=== PATIENT | female | born 2000 | race Caucasian/White ===

== ENCOUNTER 2021-05-03 03:30 | Emergency (ER) | payer OTHER ==
[~2021-05-03] VITALS: Ht 160 cm; Wt 63.5 kg
[2021-05-03 04:37] VITALS: BP 109/59
[2021-05-03] MEDS ORDERED: CEPHALEXIN500 MG PO (05:34)
[2021-05-03] MEDS ORDERED: PERCOCET 5-3251 EACH PO (05:34)
== END 2021-05-03 05:44 | disposition home or self-care (01) ==
LOC: ER 03:30
DX: S61.101A Unspecified open wound of right thumb with damage to nail, initial encounter (principal); X58.XXXA Exposure to other specified factors, initial encounter; Y93.89 Activity, other specified; Y92.89 Other specified places as the place of occurrence of the external cause; Y99.8 Other external cause status